=== PATIENT | male | born 1960 | race Two or more races ===

== ENCOUNTER 2019-10-06 14:39 | Inpatient (IN) | payer OTHER ==
[~2019-10-06] VITALS: Ht 180.3 cm; Wt 81.6 kg
--- NOTE | 2019-10-06 15:12 | NUR ---
dr diaz at bedside for eval.
[2019-10-06] MEDS ORDERED: ALBUTEROL FS 2.5 MG/3 ML VIAL.NEB ONE (15:18)
[2019-10-06] MEDS ORDERED: ALBUTEROL FS 2.5 MG/3 ML VIAL.NEB CONTNEB ONE (15:30)
[2019-10-06] MEDS ORDERED: IPRATROPIUM NEB FS 0.5 MG/2.5 ML AMPUL.NEB NEB ONE (15:30)
[2019-10-06] MEDS ORDERED: methylPREDNISolone SOD SUCC 125 MG/2ML VIAL IV ONE (15:30)
[2019-10-06] MEDS ORDERED: methylPREDNISolone SOD SUCC 125 MG/2ML VIAL ONE (15:34)
[2019-10-06] MEDS ORDERED: CLON2TAB11 PO (15:44)
[2019-10-06] MEDS ORDERED: MIRT15TA7 PO (15:44)
--- NOTE | 2019-10-06 15:45 | NUR ---
pt unable to provide urine sample at this time.
--- NOTE | 2019-10-06 16:00 | NUR ---
pt hard stick. unable to start a line. dr diaz made aware.
--- NOTE | 2019-10-06 16:11 | NUR ---
GAVE MOVESHEET AND CLINICALS TO ADMITTING
[2019-10-06 16:12] LABS: BASOPHILS % (AUTO) 0.4 % (0.0-2.0); HEMATOCRIT 52 % (39-51); HEMOGLOBIN 17.3 g/dL (13.5-17.5); LYMPHOCYTES # (AUTO) 0.4 /CMM (0.8-4.8); LYMPHOCYTES % (AUTO) 6.6 % (20.0-44.0); MEAN CORPUSCULAR HGB CONC 33 g/dl (31.0-36.0); MEAN CORPUSCULAR VOLUME 93 fL (80-96); MONOCYTES # (AUTO) 0.8 /CMM (0.1-1.30); MONOCYTES % (AUTO) 12.8 % (2.0-12.0); NEUTROPHILS # (AUTO) 5.3 /CMM (1.8-8.9); NEUTROPHILS % (AUTO) 80.2 % (43.0-81.0); PLATELET COUNT (AUTO) 104 /CMM (150-450); RED BLOOD CELL COUNT(AUTO) 5.61 MIL/uL (4.5-6.0); WHITE BLOOD COUNT (AUTO) 6.6 K/uL (4.3-11.0)
[2019-10-06 16:19] LABS: CALCIUM, SERUM 9.1 mg/dL (8.5-10.1); CARBON DIOXIDE 34 mmol/L (21-32); CHLORIDE 97 mmol/L (98-107); CREATININE 1.1 mg/dL (0.6-1.3); GLUCOSE 130 mg/dL (74-106); SODIUM SERUM 136 mmol/L (136-145); UREA NITROGEN, BLOOD 14 mg/dL (7-18)
[2019-10-06 16:25] LABS: ALANINE AMINOTRANSFERASE 24 U/L (12-78); ALBUMIN 3.7 g/dL (3.4-5.0); ALKALINE PHOSPHATASE 99 U/L (46-116); ASPARTATE AMINOTRANSFERASE 32 U/L (15-37); BILIRUBIN,DIRECT 0.1 mg/dL (0.0-0.2); BILIRUBIN,TOTAL 0.4 mg/dL (0.2-1.0); TOTAL PROTEIN, SERUM 8.1 g/dL (6.4-8.2)
--- NOTE | 2019-10-06 17:04 | NUR ---
MIDLINE INSERTED ON RIGHT BRACHIAL 18G. PATENT AND FLUSHES WELL, BLOOD DRAWN AND SENT TO LAB.
--- NOTE | 2019-10-06 17:25 | NUR ---
RECEIVED A CALL FROM REGLA TOLENTINO CM, PATIENT ACCEPTED BY DR. XIONG FROM [facility], BED ASSIGNMENT STILL PENDING. WILL CALL BACK FOR ETA.
[2019-10-06] MEDS ORDERED: LEVOFLOXACIN 750 MG /D5W 150ML 750 MG in PREMIX 1 EA IV STA (17:42)
--- NOTE | 2019-10-06 18:17 | NUR ---
TRANSFER INFO FROM VIN IN ADMITTING: [facility] ROOM 209 A REPORT TO SABINA MASTERS AT [phone] WILL CALL US BACK WITH ETA
--- NOTE | 2019-10-06 18:26 | NUR ---
report given to michelle brown at [facility]. pt awaiting transport.
--- NOTE | 2019-10-06 19:12 | NUR ---
[facility] ETA 213
--- NOTE | 2019-10-06 19:22 | NUR ---
report given to andrea brown for kelli.
[2019-10-06 19:42] LABS: ABG BASE EXCESS 8.1 mmol/L; ABG OXYGEN SATURATION 81.7 % (92.0-98.5); ABG PCO2 80.1 mmHg (35.0-45.0); ABG PH 7.297 (7.350-7.450); ABG PO2 46.9 mmHg (75.0-100.0); AaDO2 50.9 mmHg; COHb 3.2 % (0.5-1.5); MetHb 0.4 % (0.0-1.5); O2Hb 78.8 % (94.0-97.0); SITE, ABG Right Radial
--- NOTE | 2019-10-06 19:45 | NUR ---
O2 SAT AT 80%. AWARE.
--- NOTE | 2019-10-06 19:55 | NUR ---
RT AT BEDSIDE TO SET UP BI-PAP
[2019-10-06 20:53] LABS: ABG BASE EXCESS 6.8 mmol/L; ABG OXYGEN SATURATION 90.2 % (92.0-98.5); ABG PCO2 85.1 mmHg (35.0-45.0); ABG PH 7.264 (7.350-7.450); AaDO2 125.3 mmHg; COHb 2.9 % (0.5-1.5); MetHb 0.4 % (0.0-1.5); O2Hb 87.2 % (94.0-97.0); SITE, ABG Right Radial
--- NOTE | 2019-10-06 21:09 | NUR ---
BED 263
[2019-10-06] MEDS ORDERED: VANCOMYCIN 1 GM VIAL ONE (21:27)
[2019-10-06] MEDS ORDERED: VANCOMYCIN 1 GM in IV D5W 250 ML IV ONE (21:30)
[2019-10-06] MEDS ORDERED: IPRATROPIUM NEB FS 0.5 MG/2.5 ML AMPUL.NEB NEB PRN (23:00)
[2019-10-06] MEDS ORDERED: ALBUTEROL FS 2.5 MG/0.5 ML VIAL.NEB NEB PRN (23:00)
--- NOTE | 2019-10-06 23:22 | NUR ---
REPORT GIVEN TO SONAM MONTENEGRO FOR ANGELO
[2019-10-06] MEDS ORDERED: ACETAMINOPHEN 325 MG TABLET PO PRN (23:30)
--- NOTE | 2019-10-06 23:48 | NUR ---
PT TRANSPORTED TO [facility]
[2019-10-06 23:49] VITALS: BP 117/42
[2019-10-07] VITALS (28 sets, daily range): BP systolic 94–148; BP diastolic 42–122
[2019-10-07] MEDS: methylPREDNISolone SOD SUCC 40 MG/ML VIAL IV SCH ×4 (00:02→18:05)
[2019-10-07] MEDS: IV 1/2NS 1000 ML 1,000 ML IV PRN ×3 (00:12→22:31)
--- NOTE | 2019-10-07 00:30 | NUR ---
RN NOTES ADMITTED PATIENT FROM ER UNDER DR. DENZEL CONTI WITH PNA. WITH HISTORY OF SEIZURE , SMOKER, DIVERTICULITIS WITH ABDOMINAL SURGERY, ANXIETY AND HYPERTENSION. PATIENT IS ALLERGIC TO PENICILLIN. PATIENT IS PLACED ON BIPAP DUE TO ABG RESULT PCO2 85.1 AND PO2 62 WITH RT ON RATE OF 20 22/6 FIO2 60%. SATURATION 95%. AFEBRILE. AOX3 NSR ON TELE MONITOR. IV SITE ON CHAYO STARTED IVF ORDERED. KEPT PT CLEAN AND DRY. CALL LIGHT PLACED WITHIN EASY REACH , INSTRUCTION PROVIDED. WILL CONT. TO MONITOR.
[2019-10-07] MEDS: IPRATROPIUM NEB FS 0.5 MG/2.5 ML AMPUL.NEB NEB SCH ×7 (01:14→23:15)
[2019-10-07] MEDS: ALBUTEROL FS 2.5 MG/0.5 ML VIAL.NEB NEB SCH ×7 (01:14→23:15)
[2019-10-07 04:43] LABS: BASOPHILS % (AUTO) 0.4 % (0.0-2.0); HEMATOCRIT 44 % (39-51); HEMOGLOBIN 14.5 g/dL (13.5-17.5); LYMPHOCYTES # (AUTO) 0.3 /CMM (0.8-4.8); LYMPHOCYTES % (AUTO) 5.9 % (20.0-44.0); MEAN CORPUSCULAR HGB CONC 33 g/dl (31.0-36.0); MEAN CORPUSCULAR VOLUME 94 fL (80-96); MONOCYTES # (AUTO) 0.2 /CMM (0.1-1.30); NEUTROPHILS # (AUTO) 5.1 /CMM (1.8-8.9); NEUTROPHILS % (AUTO) 89.7 % (43.0-81.0); PLATELET COUNT (AUTO) 107 /CMM (150-450); RED BLOOD CELL COUNT(AUTO) 4.71 MIL/uL (4.5-6.0); WHITE BLOOD COUNT (AUTO) 5.6 K/uL (4.3-11.0)
[2019-10-07 04:52] LABS: CALCIUM, SERUM 8.3 mg/dL (8.5-10.1); CREATININE 1.2 mg/dL (0.6-1.3); POTASSIUM 5.3 mmol/L (3.5-5.1)
[2019-10-07 04:57] LABS: ALBUMIN 3.1 g/dL (3.4-5.0); BILIRUBIN,TOTAL 0.5 mg/dL (0.2-1.0); MAGNESIUM 1.9 mg/dL (1.8-2.4); TOTAL PROTEIN, SERUM 7.1 g/dL (6.4-8.2)
[2019-10-07] MEDS ORDERED: ALPR2TAB2 PO (06:46)
[2019-10-07] MEDS ORDERED: METH10TA2 PO (06:46)
--- NOTE | 2019-10-07 07:10 | NUR ---
RN NOTES PATIENT WOKE UP. AOX4 VERY ANXIOUS HOW TO URINATE DUE TO ALL MEDICAL EQUIPMENT CONNECTED TO HIM. RE EDUCATED IN REGARDS TI NEW SURROUNDING AND HIS MEDICAL CONDITION WHY HIS ON ICU. PATIENT'S IS COMPLIANT BUT INSISTING THAT HE NEEDS HIS ROUTINE MEDICINE SUCH METHADONE , XANAX AND KLONOPIN. AND WANTED TO CALLED ASTER THE PERSON THAT WELL KNOWN ABOUT HIS HISTORY AND MEDICINES. # , CALLED AND LEFT A MESSAGE TO PHONE AND ENDORSE TO AM SHIFT. PATIENT IS GIVING ME 2 PAPERS TO CALL AND UNABLE TO REMEMBER WHICH ONE HE CAME FROM TO GET MORE INFORMATION ABOUT HIM, 2 PAPERS WAS FROM [facility]. ALL NEEDS ATTENDED AND EXPLAINED REGARDING POC TO HOSPITAL. ENDORSED CONTINUITY OF CARE TO AM NURSE.
[2019-10-07 08:21] LABS: ABG BASE EXCESS 3.4 mmol/L; ABG OXYGEN SATURATION 93.6 % (92.0-98.5); ABG PCO2 77.4 mmHg (35.0-45.0); ABG PH 7.253 (7.350-7.450); ABG PO2 73.8 mmHg (75.0-100.0); AaDO2 144.4 mmHg; COHb 1.1 % (0.5-1.5); MetHb 0.2 % (0.0-1.5); O2Hb 92.4 % (94.0-97.0); SITE, ABG Left Radial; VENT MODE, BG Nasal Cannula
[2019-10-07] MEDS ORDERED: ALPRAZOLAM 1 MG TABLET PO PRN ×2 (08:30→12:30)
[2019-10-07] MEDS ORDERED: clonazePAM 1 MG TABLET PO PRN ×2 (08:30→12:30)
--- NOTE | 2019-10-07 08:30 | NUR ---
RN NOTE PT AOX3, KEEPS ASKING FOR METHADONE AND XANAX, ON NC 4L/MIN, BUT REMOVES IT, REMINDED TO KEEP OXYGEN ON, O2 SATURATION DROPS TO 80% ON ROOM AIR, ON NC 4 L/MIN SATURATION 88-91% ANXIOUS. PT REFUSES TO PUT BIPAP MASK ON. ABG DONE AND RESULTS REPORTED TO DR. JUSTICE AND DR MAHONEY. PER DR JUSTICE TO REPEAT ABG IN 2 HOURS. PT OXYGEN INCREASED TO 6 L/MIN NOW. WILL MONITOR AND CARRY OUT ORDERS.
[2019-10-07] MEDS ORDERED: METHADONE HCL 10 MG TABLET PO SCH ×3 (09:00→21:45)
[2019-10-07 10:29] LABS: ABG BASE EXCESS 3.8 mmol/L; ABG OXYGEN SATURATION 91.7 % (92.0-98.5); ABG PCO2 78.2 mmHg (35.0-45.0); ABG PH 7.255 (7.350-7.450); ABG PO2 66.5 mmHg (75.0-100.0); AaDO2 150.8 mmHg; COHb 0.9 % (0.5-1.5); MetHb 0.4 % (0.0-1.5); O2Hb 90.5 % (94.0-97.0); SITE, ABG Left Radial; VENT MODE, BG Nasal Cannula
--- NOTE | 2019-10-07 10:30 | NUR ---
ABG DONE AGAIN AND DR JUSTICE NOTIFIED, ORDERED TO PUT PT ON BIPAP 20/5, RATE OF 12. AND REPEAT ABG IN 2 HRS PT AGREED TO BE ON BIPAP. RT PLACED HIM ON BIPAP. WILL MONITOR.
--- NOTE | 2019-10-07 11:35 | NUR ---
RT 0825 RECEIVED PT OFF BIPAP ON NC. PT STATES NO SOB. NO SOB OR RESP DISTRESS NOTED. BREATHING TX GIVEN AND NO ADV REACTION. ABG WAS DONE. RESULTS WERE SHOWN TO MD AND RN. PT REFUSES BIPAP. PER MD ABG IN 2 HOURS. 1030 ABG WAS DONE AND RESULTS WERE SHOWN TO RN AND MD. PT AGREED TO BE PLACED BACK ON BIPAP. TOLERATING SETTINGS WELL. ALARMS CHECKED AND AUDIBLE. BIPAP PLUGGED IN RED OUTLET. PER MD ABG AFTER 2 HOURS ON BIPAP. WILL CONTINUE TO MONITOR.
[2019-10-07] MEDS: CLINDAMYCIN 600 MG in IV D5W 50 ML IV SCH ×2 (12:07→20:04)
[2019-10-07 12:43] LABS: ABG OXYGEN SATURATION 94.6 % (92.0-98.5); ABG PCO2 84.9 mmHg (35.0-45.0); ABG PH 7.241 (7.350-7.450); ABG PO2 81.4 mmHg (75.0-100.0); COHb 0.5 % (0.5-1.5); MetHb 0.5 % (0.0-1.5); O2Hb 93.7 % (94.0-97.0); SITE, ABG Left Radial; VENT MODE, BG ST 20/5 R12
--- NOTE | 2019-10-07 13:00 | NUR ---
RT POST ABG RESULTS, PER DR JUSTICE. BIPAP SETTINGS CHANGED TO ST 25/5 BUR 18. WILL OBTAIN ABG AFTER 2 HOURS PER MD.
--- NOTE | 2019-10-07 15:00 | NUR ---
RN NOTE ABG DONE AND SHOWN TO DR JUSTICE, PER HIM TO ADJUST BIPAP SETTINGS INCREASE RATE TO 28, 25/5, 60%, KEEP HIM LIKE THIS AND CHECK ABG IN THE AM. NO XANAX AND CLONAZEPAM WHILE HE IS ON BIPAP.
[2019-10-07 15:10] LABS: ABG BASE EXCESS 5.4 mmol/L; ABG OXYGEN SATURATION 96.3 % (92.0-98.5); ABG PCO2 81.9 mmHg (35.0-45.0); ABG PH 7.257 (7.350-7.450); ABG PO2 94.6 mmHg (75.0-100.0); AaDO2 243.1 mmHg; COHb 0.4 % (0.5-1.5); MetHb 0.6 % (0.0-1.5); O2Hb 95.3 % (94.0-97.0); SITE, ABG LEFT ARM; VENT MODE, BG ST25/5 BUR18
[2019-10-07] MEDS: NICOTINE PATCH (14MG) 14 MG PATCH.TD24 TD SCH (16:08)
[2019-10-07] MEDS ORDERED: LEVOFLOXACIN 500 MG /D5W 100ML 500 MG in PREMIX 1 EA IV SCH (17:00)
[2019-10-07 19:11] LABS: APPEARANCE,URINE CLEAR (CLEAR); BILIRUBIN,URINE NEGATIVE (NEGATIVE); BLOOD, URINE NEGATIVE Ery/uL (NEGATIVE); COLOR,URINE YELLOW (YELLOW); KETONES,URINE NEGATIVE (NEGATIVE); LEUKOCYTE ESTERASE ,URINE NEGATIVE (NEGATIVE); NITRITE, URINE NEGATIVE (NEGATIVE); PH,URINE 6.5 (5.0-8.0); PROTEIN,URINE NEGATIVE (NEGATIVE); UGLUCOSE NEGATIVE (NEGATIVE); UROBILINOGEN,URINE 0.2 EU/dL (0.2)
--- NOTE | 2019-10-07 19:20 | NUR ---
RN NOTES RECEIVED PATIENT AWAKE ON BED. AOX4 WITH BIPAP ON. ASKED ABOUT HIS METHADONE , XANAX AND KLONOPIN. RE EDUCATED PATIENT ABOUT THE PLAN OF CARE AND THE RISK AND BENEFITS TAKING ALL MEDICINE THAT HE WANTED. INFORMED REGARDING DR. JUSTICE ORDERED NOT TO GIVE THE XANAX AND KLONOPIN WHILE ON BIPAP AND THE FREQUENCY OF METHADONE ORDER PER MD. PER PATIENT HIS BEEN TAKING ALL THE MEDICINE FOR A LONGER TIME AND THAT'S WHY HIS HAVING WITHDRAWAL RIGHT NOW. EDUCATE PATIENT WHAT IS THE POSSIBLE SITUATION COULD HAPPEN IF HE TRIED TO INSIST TO TAKE THOSE MEDICINES AND WERE WAITING FOR DR. MAHONEY TO ANSWER BACK REGARDING THE METHADONE, OFFERED OTHER MEDICINE LIKE NORCO THAT MIGHT HELP HIM WELL. PATIENT NODS AND SOMEWHAT UNDERSTAND THE EXPLANATION AND WILL TAKE THE NORCO FOR THE MEAN TIME. PATIENT IS STABLE AT THIS TIME. AFEBRILE. VSS. NSR ON TELE MONITOR. SATURATION 100%. WITH ONGOING IVF 1/2 NS @ 100 ML/HR. CALL LIGHT KEPT WITHIN EASY REACH AND WILL CONTINUE TO MONITOR.
[2019-10-07] MEDS: HYDROCODONE/APAP 5/325MG 1 EACH TABLET PO PRN (20:03)
--- NOTE | 2019-10-07 20:21 | NUR ---
RECEIVED PT ON BIPAP, AWAKE AND ALERT. TOLERATING SETTINGS. BIPAP ALARMS SET AND AUDIBLE. AMBU BAG AT BEDSIDE. WILL CONTINUE TO MONITOR. Addendum: 10/07/19 at 2022 by TERESA VIERA RT Amended: Links added.
[2019-10-07] MEDS: MIRTAZAPINE 15 MG TABLET PO SCH (21:10)
[2019-10-08] VITALS (24 sets, daily range): BP systolic 96–141; BP diastolic 50–81
[2019-10-08] MEDS: methylPREDNISolone SOD SUCC 40 MG/ML VIAL IV SCH ×5 (00:55→23:15)
[2019-10-08] MEDS: IPRATROPIUM NEB FS 0.5 MG/2.5 ML AMPUL.NEB NEB SCH ×6 (03:24→23:30)
[2019-10-08] MEDS: ALBUTEROL FS 2.5 MG/0.5 ML VIAL.NEB NEB SCH ×6 (03:24→23:30)
[2019-10-08 04:43] LABS: BASOPHILS % (AUTO) 0.1 % (0.0-2.0); HEMATOCRIT 42 % (39-51); LYMPHOCYTES # (AUTO) 0.4 /CMM (0.8-4.8); LYMPHOCYTES % (AUTO) 4.7 % (20.0-44.0); MEAN CORPUSCULAR HGB CONC 33 g/dl (31.0-36.0); MEAN CORPUSCULAR VOLUME 95 fL (80-96); MONOCYTES # (AUTO) 0.6 /CMM (0.1-1.30); MONOCYTES % (AUTO) 8.2 % (2.0-12.0); NEUTROPHILS # (AUTO) 6.6 /CMM (1.8-8.9); PLATELET COUNT (AUTO) 110 /CMM (150-450); RED BLOOD CELL COUNT(AUTO) 4.42 MIL/uL (4.5-6.0); WHITE BLOOD COUNT (AUTO) 7.6 K/uL (4.3-11.0)
[2019-10-08 05:13] LABS: CALCIUM, SERUM 8.7 mg/dL (8.5-10.1); CREATININE 1.4 mg/dL (0.6-1.3); POTASSIUM 5.3 mmol/L (3.5-5.1)
[2019-10-08] MEDS: CLINDAMYCIN 600 MG in IV D5W 50 ML IV SCH ×3 (06:01→21:04)
--- NOTE | 2019-10-08 06:53 | NUR ---
RN NOTES PATIENT REMAINED ON BIPAP WHEN WATCHING ON BED PLACED ON O2 4LPM VIA NC WHEN EATING SATURATION WENT DOWN TO 88% EXPLAINED TO PATIENT THE IMPORTANCE TO KEEP THE BIPAP FOR NOW. PATIENT COOPERATED AND UNDERSTAND.PATIENT REMAINED STABLE WITH BIPAP WILL RECHECKED ABG THIS MORNING ORDERED. ALL NEEDS ATENDED. ATE SNACK AT NIGHT AND TOLERATED WELL.
--- NOTE | 2019-10-08 07:20 | NUR ---
RN OPENING NOTES RECEIVED PATIENT ASLEEP IN BED. EASY TO AROUSE. ON CARDIAC MONITORING WITH SINUS RHYTHM NOTED. ON A BIPAP MACHINE AND TOLERATING WELL. SATURATION >92%. NO SOB, NO RESPIRATORY DISTRESS NOTED ON PATIENT. SLEEPING COMFORTABLY. IV SITE ON CHAYO MIDLINE WITH 100MLS/HR OF 1/2NS INFUSING WELL. SITE CLEAN, DRY AND SECURE. CALL LIGHT IN REACH, SIDE RAILS UP X2. BED LOCKED, LOW AND AT SEMI-MERINO'S POSITION. REPORT RECEIVED ABOUT PATIENT'S XANAX AND KLONOPIN PRESCRIPTION REQUEST. WILL RE EDUCATE IF PATIENT ABOUT PLAN OF CARE IF HE ASKS AGAIN. FOR ABGS THIS AM. WILL CONTINUE TO MONITOR.
--- NOTE | 2019-10-08 08:10 | NUR ---
RN NOTE: PATIENT WAS SEEN AND EVALUATED BY DR. MAHONEY
[2019-10-08] MEDS ORDERED: METHADONE HCL 10 MG TABLET PO SCH (09:00)
[2019-10-08] MEDS: NICOTINE PATCH (14MG) 14 MG PATCH.TD24 TD SCH (09:12)
[2019-10-08] MEDS: METHADONE HCL 10 MG TABLET PO SCH ×2 (09:12→16:31)
[2019-10-08 10:04] LABS: ABG BASE EXCESS 7.5 mmol/L; ABG OXYGEN SATURATION 91.7 % (92.0-98.5); ABG PCO2 77.7 mmHg (35.0-45.0); ABG PH 7.297 (7.350-7.450); ABG PO2 62.1 mmHg (75.0-100.0); AaDO2 104.5 mmHg; COHb 0.3 % (0.5-1.5); MetHb 0.1 % (0.0-1.5); O2Hb 91.3 % (94.0-97.0); VENT MODE, BG NASAL CANNULA
[2019-10-08] MEDS: IV 1/2NS 1000 ML 1,000 ML IV PRN ×2 (12:47→23:15)
[2019-10-08] MEDS: HYDROCODONE/APAP 5/325MG 1 EACH TABLET PO PRN ×2 (13:17→19:54)
--- NOTE | 2019-10-08 14:20 | NUR ---
Social service consult requested by Dr. العلي for homelessness. Per chart review and MD notes, pt. is a 59-year-old male who with past medical history of epilepsy, anxiety, chronic pain syndrome, diverticulitis and complained of shortness of breath. ASSISTANT STORE DIRECTOR met with the pt bedside in ICU. Pt is in ICU due to needing Bipap. ASSISTANT STORE DIRECTOR introduced self and explained her role. Pt was asleep but easily awakened. Pt is alert and oriented x 4. Pt appears lethargic but is cooperative with ASSISTANT STORE DIRECTOR. Pt has tattoos on his body. Pt states he resides at a long-term house and has been there for a few months. Pt. reports to be independent with his ADLs/IADLs. Pt has a psychiatric diagnosis of Depression and Anxiety and takes Klonopin and Xanax. Pt currently denies suicidal and homicidal ideations and visual/auditory hallucinations at this time. Pt denies any current drug/alcohol use. Pt is a smoker. 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 ASSISTANT STORE DIRECTOR provide active listening and supportive counseling. Pt plans to discharge back to his long-term house at time of discharge. No other social service needs are requested at this time. ASSISTANT STORE DIRECTOR is available, if needed.
[2019-10-08] MEDS: clonazePAM 1 MG TABLET PO PRN (17:28)
--- NOTE | 2019-10-08 17:30 | NUR ---
RN NOTE: PATIENT IS VERBALLY AGGRESSIVE AND VOICES NONCOMPLIANCE WITH PLAN OF CARE. THROUGH OUT SHIFT HAS BEEN ASKING ABOUT HIS XANAX AND CLONAZEPAM MEDICATIONS AND HAVE BEEN PROPERLY EXPLAINED THE RATIONALE WHY IT IS HELD, THE PREVIOUS TIMES, THE PATIENT HAS AGREED. WITH THIS CURRENT OCCURRENCE, THE PATIENT IS INCONSOLABLE AND ANXIOUS, AND ALSO IS STATING THAT "HE WOULD LEAVE THIS PLACE AND GO HOME" CONTACTED DR. JUSTICE AND INFORMED HIM OF THE SITUATION. ORDERED KLONOPIN 1MG PO TID PRN AND DISCONTINUED KLONOPIN 2MG TID PRN AND XANAX 2MG TID PRN. INFORMED PATIENT ABOUT THE ORDER AND ACKNOWLEDGED, PATIENT WILL NOT GO AMA. ADMINISTERED MEDICATION. INFORMED DR. MAHONEY OF THE SITUATION AND HE ACKNOWLEDGED.
--- NOTE | 2019-10-08 19:15 | NUR ---
RN CLOSING NOTES PATIENT IN BED. ALERT, AWAKE AND ORIENTED X2-3 WITH PERIODS OF CONFUSION AND FORGETFULNESS NOTED. CARDIAC MONITORING WITH SINUS RHYTHM NOTED. CONT. O2 VIA NC @ 4LPM WITH SATURATION >92%, ABG DONE EARLIER, DR. JUSTICE AWARE OF RESULT AND INSTRUCTED TO RESUME BIPAP IF PATIENT BECOMES VISUALLY DISTRESSED. NO SOB, NO RESPIRATORY DISTRESS NOTED ON PATIENT. IV SITE ON CHAYO MIDLINE WITH 100MLS/HR OF 1/2NS INFUSING WELL @ 100MLS/HR. SITE CLEAN, DRY AND SECURE. CALL LIGHT IN REACH, SIDE RAILS UP X2. BED LOCKED, LOW AND AT SEMI-MERINO'S POSITION. ENDORSED TO ONCOMING SHIFT FOR ANGELO.
--- NOTE | 2019-10-08 19:25 | NUR ---
ICU/RN notes Patient received in bed, awake, A/O x4. Denies any pain. In no acute distress. breathing even and unlabored. On O2 4LPM via NC, saturating 93%. Sinus rhythm on monitor. CHAYO midline in place, patent, running with fluids as ordered. Safety maintained, bed at the lowest locked position. Call light within reach. Will continue to monitor as per plan of care.
[2019-10-08] MEDS: MIRTAZAPINE 15 MG TABLET PO SCH (21:04)
[2019-10-09] VITALS (17 sets, daily range): BP systolic 113–154; BP diastolic 64–101
[2019-10-09] MEDS: clonazePAM 1 MG TABLET PO PRN ×4 (02:37→17:06)
[2019-10-09] MEDS: IPRATROPIUM NEB FS 0.5 MG/2.5 ML AMPUL.NEB NEB SCH ×4 (02:45→20:00)
[2019-10-09] MEDS: ALBUTEROL FS 2.5 MG/0.5 ML VIAL.NEB NEB SCH ×4 (02:45→19:59)
[2019-10-09 04:56] LABS: BASOPHILS % (AUTO) 0.1 % (0.0-2.0); HEMATOCRIT 43 % (39-51); HEMOGLOBIN 14.1 g/dL (13.5-17.5); LYMPHOCYTES # (AUTO) 0.4 /CMM (0.8-4.8); LYMPHOCYTES % (AUTO) 5.8 % (20.0-44.0); MEAN CORPUSCULAR HGB CONC 33 g/dl (31.0-36.0); MEAN CORPUSCULAR VOLUME 95 fL (80-96); MONOCYTES # (AUTO) 0.6 /CMM (0.1-1.30); MONOCYTES % (AUTO) 7.6 % (2.0-12.0); NEUTROPHILS # (AUTO) 6.3 /CMM (1.8-8.9); NEUTROPHILS % (AUTO) 86.5 % (43.0-81.0); PLATELET COUNT (AUTO) 112 /CMM (150-450); RED BLOOD CELL COUNT(AUTO) 4.54 MIL/uL (4.5-6.0); WHITE BLOOD COUNT (AUTO) 7.3 K/uL (4.3-11.0)
[2019-10-09 05:07] LABS: CALCIUM, SERUM 8.6 mg/dL (8.5-10.1); POTASSIUM 4.9 mmol/L (3.5-5.1)
[2019-10-09] MEDS: CLINDAMYCIN 600 MG in IV D5W 50 ML IV SCH ×3 (05:14→21:22)
[2019-10-09] MEDS: methylPREDNISolone SOD SUCC 40 MG/ML VIAL IV SCH ×3 (05:14→17:06)
--- NOTE | 2019-10-09 07:15 | NUR ---
ICU/RN notes Patient remained in bed, awake, A/O x4. Denies any pain. In no acute distress. breathing even and unlabored. On O2 4LPM via NC, saturating 97%. Patient refused BIPAP at night. Sinus rhythm on monitor. CHAYO midline in place, patent, running with fluids as ordered. Safety maintained, bed at the lowest locked position. Call light within reach, Due meds given as ordered, tolerated well. needs attendant. Endorse to AM shift nurse for ANGELO.
--- NOTE | 2019-10-09 07:35 | NUR ---
JUVENILE OFFICER: pt.is A/Ox3 now, no c/o now, SR, ST with activity, SBP is over 100, below 160, on 4L n/c over night, refused for Bipap, O2sat. 90-92% now, no SOB, oriented for Dx, POC, falls/injury prevention measures
--- NOTE | 2019-10-09 07:36 | NUR ---
DEMO EVENT SPECIALIST: pt is on 6L n/c over night and now
[2019-10-09 08:02] LABS: ABG BASE EXCESS 11.6 mmol/L; ABG OXYGEN SATURATION 90.6 % (92.0-98.5); ABG PCO2 73.3 mmHg (35.0-45.0); ABG PH 7.363 (7.350-7.450); ABG PO2 57.7 mmHg (75.0-100.0); AaDO2 172.5 mmHg; COHb 0.8 % (0.5-1.5); MetHb 0.2 % (0.0-1.5); O2Hb 89.7 % (94.0-97.0); SITE, ABG Right Radial; VENT MODE, BG NASAL CANNULA
--- NOTE | 2019-10-09 08:04 | NUR ---
TAX EXAMINER: pt.c/o general pain, -04/25, said "pain is everywhere, I need pain med right now", asking for Klonopin also, (emar: Methadone BID, Klonopin TID), got detailed explanation re MD orders, risks of respiratory status suppressing by pain, sedation meds, pt.said: no c/o of breathing problem, no SOB over night, ABG today: pH 7.36/pCO2 73, pO2 57 HCO3 40
--- NOTE | 2019-10-09 08:12 | NUR ---
PLASTIC DESIGN APPLIER: updated with pt.current status, VS, c/o of pain, meds, current ABG, ordered: repeat ABG at 12.00, call him and pt is candidate to transfer
[2019-10-09] MEDS: NICOTINE PATCH (14MG) 14 MG PATCH.TD24 TD SCH (08:23)
[2019-10-09] MEDS: METHADONE HCL 10 MG TABLET PO SCH ×2 (08:23→16:36)
--- NOTE | 2019-10-09 08:45 | NUR ---
BARTENDER SERVER: is in room, updated with pt.current status, VS, O2sat, ABG, bipap refused, order to repeat ABG
[2019-10-09] MEDS: IV 1/2NS 1000 ML 1,000 ML IV PRN (10:08)
[2019-10-09] MEDS: HYDROCODONE/APAP 5/325MG 1 EACH TABLET PO PRN ×2 (12:01→16:36)
[2019-10-09 12:53] LABS: ABG BASE EXCESS 10.1 mmol/L; ABG OXYGEN SATURATION 91.6 % (92.0-98.5); ABG PCO2 56.6 mmHg (35.0-45.0); ABG PO2 58.9 mmHg (75.0-100.0); AaDO2 161.2 mmHg; COHb 0.6 % (0.5-1.5); MetHb 0.2 % (0.0-1.5); O2Hb 90.9 % (94.0-97.0); SITE, ABG Right Radial; VENT MODE, BG 4L NC
--- NOTE | 2019-10-09 13:07 | NUR ---
HEALTHCARE ACCOUNT MANAGER: got ABG: pH 7.43/pCO2 56, pO2 58, updated and ok to transfer
--- NOTE | 2019-10-09 13:17 | NUR ---
CORE MICROARCHITECT: full report is given for Melida RN, MS, included ABGs, meds, note, nocturnal Bipap/pt.refused last night for Bipap
--- NOTE | 2019-10-09 18:34 | NUR ---
RN Note: patient transferred from ICU alert awake oriented x 4. on 4 LPM O2 via NC, no breathing distress noted. Room orientation provided. Encourage patient to use call light for assistance. Safety measures observed. Call light within reach. Will continue to monitor.
--- NOTE | 2019-10-09 19:25 | NUR ---
ICU/RN notes Patient received in bed, awake, A/O x4. Denies any pain. In no acute distress. breathing even and unlabored. On O2 4LPM via NC, saturating 96%. Sinus rhythm on monitor. CHAYO midline in place, patent. Safety maintained, bed at the lowest locked position. Call light within reach. Will continue to monitor as per plan of care. Addendum: 10/09/19 at 2303 by TUNDE MENSAH RN MS/SONAM Notes
--- NOTE | 2019-10-09 20:52 | NUR ---
food and beverage manager Nenita Called at this time, said that patient need to be transfer to [facility] Room [address] العلي ordered. Called Dr. Severiano Santos at this time, with new order to Discharge patient to [facility] Room 205A. Noted and carried out.
[2019-10-09] MEDS: MIRTAZAPINE 15 MG TABLET PO SCH (21:22)
--- NOTE | 2019-10-09 21:52 | NUR ---
Called [facility], Given report to Josh MASTERS.
--- NOTE | 2019-10-09 22:57 | NUR ---
Patient left the unit at this time, Via [facility], accompanied by 2 EMT's. In stable condition. In no acute distress, breathing even and unlabored on O2 4LPM via NC. Saturating 98% BP 132/82, HR 87, R18, T98.4, Pain 0/10. Patient remained A/O to his base line, discharge instruction provided. Clean and Dry. CHAYO midline in place, patent, flushed with NS. All belonging given to the patient.
== END 2019-10-09 23:14 | disposition short-term general hospital (02) | DRG 140 ==
LOC: ER 14:39 → ICU 23:00 → MEDSG1 10-09 13:53 → TELE1 10-09 14:02
PROVIDERS: ADMIT Internal Medicine; ATTEND Internal Medicine
PROC: 05H933Z Insertion of Infusion Device into Right Brachial Vein, Percutaneous Approach (ICD-10-PCS; principal; 2019-10-06)
PROC: 5A09457 Assistance with Respiratory Ventilation, 24-96 Consecutive Hours, Continuous Positive Airway Pressure (ICD-10-PCS; principal; 2019-10-06)
DX: J44.1 Chronic obstructive pulmonary disease with (acute) exacerbation (principal); N17.0 Acute kidney failure with tubular necrosis; J96.22 Acute and chronic respiratory failure with hypercapnia; J84.9 Interstitial pulmonary disease, unspecified; K57.92 Diverticulitis of intestine, part unspecified, without perforation or abscess without bleeding; F41.9 Anxiety disorder, unspecified; G40.909 Epilepsy, unspecified, not intractable, without status epilepticus; G89.4 Chronic pain syndrome; F17.210 Nicotine dependence, cigarettes, uncomplicated; E86.0 Dehydration; Z88.0 Allergy status to penicillin; Z87.01 Personal history of pneumonia (recurrent); Z79.891 Long term (current) use of opiate analgesic
CPT/HCPCS: 36410; 36415; 36600; 71045-TC; 80048-TC; 80053-TC; 80076-TC; 80305; 81000-TC; 82803-TC; 83605-TC; 83735-TC; 84484-TC; 85025-TC; 85730-TC; 87040-TC; 87081-TC; 87086-TC; 94760-TC; 99082-TC; A4216; G0378; J1956; J2920; J2930; J3370; J3490; J7060

== ENCOUNTER 2019-10-29 13:16 | Emergency (ER) | payer OTHER ==
[~2019-10-29] VITALS: Ht 175.3 cm; Wt 83.9 kg
[~2019-10-29 13:16] MED LIST: ALPR2TAB2 PO; CLON2TAB11 PO; METH10TA2 PO; MIRT15TA7 PO
--- NOTE | 2019-10-29 13:42 | NUR ---
BILATERAL LOWER EXTREMITY PAIN AND SWELLING X 1 MONTH. REPORTS PAIN LEVEL 8/10, TAKES METHADONE, XANAX, CLONIPINE. LOWER LEGS VERY RED AND SWOLLEN. DENIES HX DVT. DENIE SOB, DIZZINESS, WEAKNESS. APPEARS SLIGHTLY LETHARGIC. AOX4, VSS, RR EVEN AND UNLABORED ON 2L VIA NC. ON MONITOR AND READY FOR EVAL.
[2019-10-29] MEDS ORDERED: predniSONE 20 MG TABLET PO ONE (14:30)
[2019-10-29] MEDS ORDERED: ALBUTEROL FS 2.5 MG/3 ML VIAL.NEB CONTNEB ONE (14:30)
[2019-10-29] MEDS ORDERED: FUROSEMIDE 20 MG/2 ML VIAL IV ONE (14:30)
[2019-10-29] MEDS ORDERED: FUROSEMIDE 20 MG/2 ML VIAL ONE (14:53)
[2019-10-29] MEDS ORDERED: predniSONE 20 MG TABLET ONE (15:00)
[2019-10-29 15:08] LABS: BASOPHILS # (AUTO) 0.2 /CMM (0.0-0.2); BASOPHILS % (AUTO) 3.2 % (0.0-2.0); EOSINOPHILS % (AUTO) 2.4 % (0.0-6.0); HEMATOCRIT 44 % (39-51); HEMOGLOBIN 14.3 g/dL (13.5-17.5); LYMPHOCYTES # (AUTO) 0.9 /CMM (0.8-4.8); LYMPHOCYTES % (AUTO) 15.7 % (20.0-44.0); MEAN CORPUSCULAR HGB CONC 32 g/dl (31.0-36.0); MEAN CORPUSCULAR VOLUME 95 fL (80-96); MONOCYTES # (AUTO) 0.7 /CMM (0.1-1.30); MONOCYTES % (AUTO) 13.1 % (2.0-12.0); NEUTROPHILS # (AUTO) 3.7 /CMM (1.8-8.9); NEUTROPHILS % (AUTO) 65.6 % (43.0-81.0); PLATELET COUNT (AUTO) 93 /CMM (150-450); RED BLOOD CELL COUNT(AUTO) 4.66 MIL/uL (4.5-6.0); WHITE BLOOD COUNT (AUTO) 5.7 K/uL (4.3-11.0)
[2019-10-29 15:22] LABS: CARBON DIOXIDE 33 mmol/L (21-32); CHLORIDE 103 mmol/L (98-107); CREATININE 1.3 mg/dL (0.6-1.3); GLUCOSE 92 mg/dL (74-106); POTASSIUM 4.6 mmol/L (3.5-5.1); SODIUM SERUM 142 mmol/L (136-145); UREA NITROGEN, BLOOD 19 mg/dL (7-18)
[2019-10-29 15:28] LABS: ALANINE AMINOTRANSFERASE 25 U/L (12-78); ALBUMIN 3.2 g/dL (3.4-5.0); ALKALINE PHOSPHATASE 82 U/L (46-116); ASPARTATE AMINOTRANSFERASE 27 U/L (15-37); BILIRUBIN,DIRECT 0.1 mg/dL (0.0-0.2); BILIRUBIN,TOTAL 0.7 mg/dL (0.2-1.0); TOTAL PROTEIN, SERUM 7.3 g/dL (6.4-8.2)
[2019-10-29 15:29] LABS: LIPASE 88 U/L (73-393)
--- NOTE | 2019-10-29 15:36 | NUR ---
ASTER, RESIDENTIAL PLUMBER AT FACILITY CELL [phone] LUCIE, CAREGIVER - [phone]
[2019-10-29] MEDS ORDERED: ALBUTEROL FS 2.5 MG/3 ML VIAL.NEB ONE (15:42)
--- NOTE | 2019-10-29 15:44 | NUR ---
RT AT BEDSIDE FOR TX
--- NOTE | 2019-10-29 16:20 | NUR ---
IV removed. Catheter intact and site benign. Pressure and 4x4 applied to site. No bleeding noted.
--- NOTE | 2019-10-29 16:25 | NUR ---
Patient discharged to home in stable condition. Written and verbal after care instructions given. Patient verbalizes understanding of instruction.
[2019-10-29 16:34] VITALS: BP 120/68
[2019-10-29 16:35] LABS: BAND % (MANUAL) 3 % (0.0-5.0); NEUTROPHILS % (MANUAL) 62 (42-76)
[2019-10-29 16:36] LABS: EOSINOPHILS % (MANUAL) 1 % (0-4); LYMPHOCYTES % (MANUAL) 20 % (16-48); MONOCYTES % (MANUAL) 14 % (0-11.0)
== END 2019-10-29 16:52 | disposition home or self-care (01) ==
LOC: ER 13:17
DX: J44.9 Chronic obstructive pulmonary disease, unspecified (principal); I87.2 Venous insufficiency (chronic) (peripheral); R60.0 Localized edema; G89.4 Chronic pain syndrome; R56.9 Unspecified convulsions; I10 Essential (primary) hypertension; F11.20 Opioid dependence, uncomplicated; Z98.890 Other specified postprocedural states; Z88.0 Allergy status to penicillin; Z79.899 Other long term (current) drug therapy
CPT/HCPCS: 36415; 71045; 80048; 80076; 83690; 83880; 84484; 85025; 93005; 94644; 96374; 99285; J1940; J7512